=== PATIENT | female | born 2000 | race Caucasian/White ===

== ENCOUNTER 2021-05-05 16:07 | Emergency (ER) | payer OTHER ==
[2021-05-10] MEDS ORDERED: HYDROCODON-ACE1 EAC6 PO (11:14)
== END 2021-05-05 18:36 | disposition left against medical advice (07) ==
LOC: ER1 16:07
DX: Z53.21 Procedure and treatment not carried out due to patient leaving prior to being seen by health care provider (principal)

== ENCOUNTER 2021-05-06 01:28 | Emergency (ER) | payer OTHER ==
[2021-05-10] MEDS ORDERED: HYDROCODON-ACE1 EAC6 PO (11:14)
== END 2021-05-06 06:21 | disposition home or self-care (01) ==
LOC: ER1 01:28
DX: S42.001A Fracture of unspecified part of right clavicle, initial encounter for closed fracture (principal); V49.40XA Driver injured in collision with unspecified motor vehicles in traffic accident, initial encounter; Y92.410 Unspecified street and highway as the place of occurrence of the external cause
CPT/HCPCS: 73000; 73130; 99283

== ENCOUNTER → 2021-05-10 | Day surgery (SDC) | payer OTHER ==
[~2021-05-10] MED LIST: HYDROCODON-ACE1 EAC6 PO
[2021-05-10 11:14] LABS: BUN/CREATININE RATIO 13 (0-10)
== END | disposition home or self-care (01) ==
LOC: OR 08:43
PROVIDERS: Orthopaedic Surgery
DX: S42.021A Displaced fracture of shaft of right clavicle, initial encounter for closed fracture (principal); F17.290 Nicotine dependence, other tobacco product, uncomplicated; Z88.8 Allergy status to other drugs, medicaments and biological substances; Z20.822 Contact with and (suspected) exposure to COVID-19; V89.2XXA Person injured in unspecified motor-vehicle accident, traffic, initial encounter
CPT/HCPCS: 71045; 73000; 76000; 80048; 84703; C1713; J0690; J1100; J1885; J2001; J2250; J2405; J2704; J2710; J2795; J3010; J7120; U0002